=== PATIENT | female | born 1970 | race Caucasian/White ===

== ENCOUNTER → 2024-12-07 08:44 | Outpatient (REF) | payer BC, SELFPAY | LOC: EMG 08:44 | PROVIDERS: ATTENDING PHYSICIAN Pain Medicine Interventional Pain Medicine; FAMILY PHYSICIAN Internal Medicine | DX: M54.12 Radiculopathy, cervical region (principal); R20.0 Anesthesia of skin | CPT/HCPCS: 95886; 95911 ==